=== PATIENT | female | born 1970 | race Caucasian/White ===

== ENCOUNTER 2017-08-18 18:29 | Emergency (ER) | payer OTHER ==
--- NOTE | 2017-08-18 18:37 | ED.ADGEN ---
Adult General Chief Complaint Chief Complaint ".. I got this toe problems.... HPI HPI Patient is a 47 year old female who presents with above hx of right toe cellulitis. Patient states infection occurred after she had nails done. Patient has a oncotic right first toe nail. There is surrounding cellulitis and streaking up the lymphatics on right leg to mid tibia area. No adenopathy appreciated. Patient does not remember her last tetanus vaccination. No recent travel. No history immunosuppression. Patient is an avid runner. No specific ill contacts. Patient follows with Arun Tafoya for care. Pt. had earlier foot x- ray shows- lucency of the overlying cortical aspect on distal first toe.- Cellulitis versus osteomyelitis. Review of Systems Review of Systems Constitutional: Denies fever or chills [] Eyes: Denies change in visual acuity, redness, or eye pain [] HENT: Denies nasal congestion or sore throat [] Respiratory: Denies cough or shortness of breath [] Cardiovascular: No additional information not addressed in HPI [] GI: Denies abdominal pain, nausea, vomiting, bloody stools or diarrhea [] : Denies dysuria or hematuria [] Musculoskeletal: Denies back pain or joint pain []complaints of right 1st toe pain and cellulitis Integument: Denies rash or skin lesions [] Neurologic: Denies headache, focal weakness or sensory changes [] Endocrine: Denies polyuria or polydipsia [] All other systems were reviewed and found to be within normal limits, except as documented in this note. Family History Family History Noncontributory Current Medications Current Medications Current Medications Medications (Trade) Dose Ordered Sig/Kyra Start Time Stop Time Status Last Admin Dose Admin Lactated Ringer's 1,000 ml @ 1,000 mls/hr Q1H 08/18/17 18:52 08/18/17 21:28 DC 08/18/17 20:14 1,000 MLS/HR Tetanus/ Diphtheria Toxoids Adsorbed (Tenivac Vial) 0.5 ml STK-MED ONCE 08/18/17 20:18 08/18/17 21:28 DC Allergies Allergies No known drug allergies Physical Exam Physical Exam Constitutional: Well developed, well nourished, no acute distress, non-toxic appearance. [] HENT: Normocephalic, atraumatic, bilateral external ears normal, oropharynx moist, no oral exudates, nose normal. [] Eyes: PERRLA, EOMI, conjunctiva normal, no discharge. [] Neck: Normal range of motion, no tenderness, supple, no stridor. [] Cardiovascular:Heart rate regular rhythm, no murmur [] Lungs & Thorax: Bilateral breath sounds clear to auscultation [] Abdomen: Bowel sounds normal, soft, no tenderness, no masses, no pulsatile masses. [] Skin: Warm, dry, no erythema, no rash. [] Back: No tenderness, no CVA tenderness. [] Extremities: No tenderness, no cyanosis, no clubbing, ROM intact, no edema. [] Except findings of right first toe Neurologic: Alert and oriented X 3, normal motor function, normal sensory function, no focal deficits noted. [] Psychologic: Affect normal, judgement normal, mood normal. [] Current Patient Data Vital Signs Vital Signs Date Time Temp Pulse Resp B/P (MAP) Pulse Ox O2 Delivery O2 Flow Rate FiO2 08/18/17 21:20 62 20 116/62 (80) 100 Room Air 08/18/17 18:29 98.1 Lab Results Laboratory Tests Test 08/18/17 20:05 White Blood Count 5.8 x10^3/uL (4.0-11.0) Red Blood Count 4.53 x10^6/uL (3.50-5.40) Hemoglobin 15.5 g/dL (12.0-15.5) Hematocrit 45.1 % (36.0-47.0) Mean Corpuscular Volume 100 fL (79-100) Mean Corpuscular Hemoglobin 34 pg (25-35) Mean Corpuscular Hemoglobin Concent 34 g/dL (31-37) Red Cell Distribution Width 12.9 % (11.5-14.5) Platelet Count 226 x10^3/uL (140-400) Neutrophils (%) (Auto) 60 % (31-73) Lymphocytes (%) (Auto) 27 % (24-48) Monocytes (%) (Auto) 11 % (0-9) H Eosinophils (%) (Auto) 2 % (0-3) Basophils (%) (Auto) 1 % (0-3) Neutrophils # (Auto) 3.5 x10^3uL (1.8-7.7) Lymphocytes # (Auto) 1.6 x10^3/uL (1.0-4.8) Monocytes # (Auto) 0.6 x10^3/uL (0.0-1.1) Eosinophils # (Auto) 0.1 x10^3/uL (0.0-0.7) Basophils # (Auto) 0.0 x10^3/uL (0.0-0.2) Erythrocyte Sedimentation Rate 1 (0-25) Sodium Level 140 mmol/L (136-145) Potassium Level 4.1 mmol/L (3.5-5.1) Chloride Level 103 mmol/L (98-107) Carbon Dioxide Level 30 mmol/L (21-32) Anion Gap 7 (6-14) Blood Urea Nitrogen 20 mg/dL (7-20) Creatinine 0.8 mg/dL (0.6-1.0) Estimated GFR (Cockcroft-Gault) 76.2 Glucose Level 80 mg/dL (70-99) Calcium Level 8.7 mg/dL (8.5-10.1) Total Bilirubin 0.7 mg/dL (0.2-1.0) Direct Bilirubin 0.1 mg/dL (0.0-0.2) Aspartate Amino Transferase (AST) 42 U/L (15-37) H Alanine Aminotransferase (ALT) 34 U/L (14-59) Alkaline Phosphatase 67 U/L (46-116) C-Reactive Protein 14.1 mg/L (0-3.3) H Total Protein 8.1 g/dL (6.4-8.2) Albumin 4.0 g/dL (3.4-5.0) EKG EKG [] Radiology/Procedures Radiology/Procedures Reviewed x-ray taken earlier[] Course & Med Decision Making Course & Med Decision Making Pertinent Labs and Imaging studies reviewed. (See chart for details). Continue current antibiotics as directed. (Clindamycin 300 bid). Soak foot in Epsom salts 4 times a day. Apply Polysporin afterwards. Elevation, rest, wear white socks. Return if any concerns. May need it additional antibiotics or changes if progression of cellulitis and lymphatic tracking increases. Tylenol and ibuprofen for pain. Return if any concerns. Follow-up primary care. [] Final Impression Final Impression 1. Cellulitis first right toe-possible osteomyelitis[] Dragon Disclaimer Dragon Disclaimer This electronic medical record was generated, in whole or in part, using a voice recognition dictation system. SAM NIÑO MD August 18, 2017 18:37
[2017-08-18] MEDS ORDERED: IV RINGERS SOLUTION,LACTATED 1,000 ML IV SCH (18:52)
[2017-08-18] MEDS ORDERED: TETANUS AND DIPHTHERIA TOX/PF 0.5 ML VIAL. VAX IM ONE ×2 (19:00→20:18)
[2017-08-18 20:36] LABS: BASO % 1 % (0-3); EOS # 0.1 x10^3/uL (0.0-0.7); EOS % 2 % (0-3); HEMATOCRIT 45.1 % (36.0-47.0); HEMOGLOBIN 15.5 g/dL (12.0-15.5); LYMPH # 1.6 x10^3/uL (1.0-4.8); LYMPH % 27 % (24-48); MEAN CORPUSCULAR HEMOGLOBIN 34 pg (25-35); MEAN CORPUSCULAR HGB CONC 34 g/dL (31-37); MEAN CORPUSCULAR VOLUME 100 fL (79-100); MONO # 0.6 x10^3/uL (0.0-1.1); MONO % 11 % (0-9); NEUT # 3.5 x10^3uL (1.8-7.7); NEUT % 60 % (31-73); PLATELET COUNT 226 x10^3/uL (140-400); RED BLOOD COUNT 4.53 x10^6/uL (3.50-5.40); RED CELL DISTRIBUTION WIDTH 12.9 % (11.5-14.5); WHITE BLOOD COUNT 5.8 x10^3/uL (4.0-11.0)
[2017-08-18 20:47] LABS: C REACTIVE PROTEIN 14.1 mg/L (0-3.3); CALCIUM 8.7 mg/dL (8.5-10.1); CREATININE 0.8 mg/dL (0.6-1.0); DIRECT BILIRUBIN 0.1 mg/dL (0.0-0.2); GFR 76.2; POTASSIUM 4.1 mmol/L (3.5-5.1); TOTAL BILIRUBIN 0.7 mg/dL (0.2-1.0); TOTAL PROTEIN 8.1 g/dL (6.4-8.2)
[2017-08-18 21:20] VITALS: BP 116/62
[2017-08-18 21:44] LABS: SEDIMENTATION RATE 1 (0-25)
== END 2017-08-18 21:27 | disposition home or self-care (01) ==
LOC: ER 18:29
DX: L03.031 Cellulitis of right toe (principal)
CPT/HCPCS: 36415; 80048; 80076; 85025; 85651; 86140; 87040; 90471; 90714; 99284; J7120

== ENCOUNTER → 2017-08-18 | Outpatient (CLI) | payer SELFPAY ==
--- NOTE | 2017-08-18 17:10 | RAD ---
EXAM: Right foot, 2 views. HISTORY: Infection after pedicure. Swelling, bruising and redness. COMPARISON: None. FINDINGS: Frontal and lateral views of the right foot are obtained. There is lucency along the lateral aspect of the tuft of the first distal phalanx. There is no associated cortical defect. There is no dislocation or subluxation. IMPRESSION: Lucency with overlying cortical defect involving the lateral aspect of the tuft of the first distal phalanx. Given a reported soft tissue infection in this distribution, this may be due to osteomyelitis. Electronically signed by: Emily Nielsen MD (08/18/2017 5:07 PM) [facility]
== END | disposition home or self-care (01) ==
LOC: DXRAD 16:27
PROVIDERS: ATTEND Nurse Practitioner Family
DX: M79.674 Pain in right toe(s) (principal)
CPT/HCPCS: 73620